=== PATIENT | female | born 1950 | race Two or more races ===

== ENCOUNTER 2017-07-12 07:39 | Emergency (ER) | payer SELFPAY ==
[2017-07-12] MEDS: IV NORMAL SALINE 1000ML BAG 1,000 ML IV (08:14)
[2017-07-12] MEDS: ACETAMINOPHEN 500 MG TABLET PO (08:16)
[2017-07-12 08:19] LABS: ADD MAN DIFF? NO
[2017-07-12 08:22] LABS: BASO # 0.1 x10^3/uL (0.0-0.2); BASO % 1 % (0-3); EOS # 0.1 x10^3/uL (0.0-0.7); EOS % 1 % (0-3); HEMATOCRIT 36.5 % (36.0-47.0); HEMOGLOBIN 12.5 g/dL (12.0-15.5); LYMPH # 1.5 x10^3/uL (1.0-4.8); LYMPH % 13 % (24-48); MEAN CORPUSCULAR HEMOGLOBIN 29 pg (25-35); MEAN CORPUSCULAR HGB CONC 34 g/dL (31-37); MEAN CORPUSCULAR VOLUME 85 fL (79-100); MONO # 0.7 x10^3/uL (0.0-1.1); MONO % 6 % (0-9); NEUT # 9.4 x10^3uL (1.8-7.7); NEUT % 80 % (31-73); PLATELET COUNT 260 x10^3/uL (140-400); RED BLOOD COUNT 4.28 x10^6/uL (3.50-5.40); RED CELL DISTRIBUTION WIDTH 13.4 % (11.5-14.5); WHITE BLOOD COUNT 11.8 x10^3/uL (4.0-11.0)
[2017-07-12 08:27] LABS: BILIRUBIN,URINE NEGATIVE (NEG); CLARITY,URINE CLEAR; COLOR,URINE YELLOW; GLUCOSE,URINE NEGATIVE (NEG); NITRITE,URINE POSITIVE (NEG); PH,URINE 5.5; PROTEIN,URINE 100 mg/dL (NEG-TRACE)
[2017-07-12 08:31] LABS: BACTERIA,URINE MANY /HPF (0-FEW); SQUAMOUS EPITHELIAL CELL,UR MANY /LPF
[2017-07-12 08:32] LABS: ANION GAP 10 (6-14); BLOOD UREA NITROGEN 18 mg/dL (7-20); BUN/CREATININE RATIO 14 (6-20); CARBON DIOXIDE 26 mmol/L (21-32); CHLORIDE 100 mmol/L (98-107); CREATININE 1.3 mg/dL (0.6-1.0); GFR 41.2; GLUCOSE 151 mg/dL (70-99); POTASSIUM 3.7 mmol/L (3.5-5.1); RBC,URINE >40 /HPF (0-2); SODIUM 136 mmol/L (136-145); WBC,URINE >40 /HPF (0-4)
[2017-07-12 08:39] LABS: ALBUMIN 3.8 g/dL (3.4-5.0); ALBUMIN/GLOBULIN RATIO 0.7 (1.0-1.7); ALK PHOS 136 U/L (46-116); ALT (SGPT) 39 U/L (14-59); AST (SGOT) 49 U/L (15-37); TOTAL BILIRUBIN 0.8 mg/dL (0.2-1.0)
[2017-07-12 08:41] LABS: LACTIC ACID 1.1 mmol/L (0.4-2.0)
[2017-07-12 08:56] LABS: TROPONINI < 0.017 ng/mL (0.000-0.055)
== END 2017-07-12 10:04 | disposition home or self-care (01) ==
LOC: ER 07:39
DX: N39.0 Urinary tract infection, site not specified (principal); E11.9 Type 2 diabetes mellitus without complications; I10 Essential (primary) hypertension; Z79.899 Other long term (current) drug therapy
CPT/HCPCS: 36415; 71045; 80053; 81001; 83605; 84145; 84484; 85025; 87040; 87086; 93005; 96365; 99285; J0690; J7030

== ENCOUNTER 2019-02-26 09:15 | Emergency (ER) | payer SELFPAY ==
[~2019-02-26] VITALS: Ht 152.4 cm; Wt 81.6 kg
[~2019-02-26 09:15] MED LIST: CEPH500T PO
[2019-02-26 09:55] VITALS: BP 168/77
[2019-02-26 10:38] LABS: CALCIUM 9.4 mg/dL (8.5-10.1); GFR 55.5; POTASSIUM 4.4 mmol/L (3.5-5.1)
[2019-02-26 10:44] LABS: ALBUMIN/GLOBULIN RATIO 0.6 (1.0-1.7); TOTAL BILIRUBIN 0.3 mg/dL (0.2-1.0); TOTAL PROTEIN 10.5 g/dL (6.4-8.2); URIC ACID 7.5 mg/dL (2.6-6.0)
--- NOTE | 2019-02-26 10:51 | RAD ---
FOOT LEFT 3V 02/26/2019 10:10 AM INDICATION: Great toe swelling COMPARISON: None available. TECHNIQUE: 3 views of the left foot are provided. FINDINGS/ IMPRESSION: There is no acute fracture or dislocation. Joint spaces are maintained. Bone mineralization is within normal limits. Minimal soft tissue swelling of the first digit without underlying osseous abnormality or mineralization within the soft tissues. There is no soft tissue gas or osseous erosion. No radiopaque foreign body. Posterior and plantar calcaneal enthesophytes are present. Electronically signed by: Petrona Hoskins MD (02/26/2019 10:48 AM) [id number]
[2019-02-26 11:40] LABS: BASO % 1 % (0-3); EOS # 0.4 x10^3/uL (0.0-0.7); EOS % 6 % (0-3); HEMATOCRIT 40.6 % (36.0-47.0); HEMOGLOBIN 13.6 g/dL (12.0-15.5); LYMPH # 3.3 x10^3/uL (1.0-4.8); LYMPH % 46 % (24-48); MEAN CORPUSCULAR HEMOGLOBIN 29 pg (25-35); MEAN CORPUSCULAR HGB CONC 34 g/dL (31-37); MEAN CORPUSCULAR VOLUME 87 fL (79-100); MONO # 0.3 x10^3/uL (0.0-1.1); MONO % 5 % (0-9); NEUT # 3.2 x10^3/uL (1.8-7.7); NEUT % 44 % (31-73); PLATELET COUNT 310 x10^3/uL (140-400); RED BLOOD COUNT 4.67 x10^6/uL (3.50-5.40); RED CELL DISTRIBUTION WIDTH 13.6 % (11.5-14.5); WHITE BLOOD COUNT 7.3 x10^3/uL (4.0-11.0)
[2019-02-26] MEDS ORDERED: COLCHICINE 0.6 MG TABLET PO ONE (13:15)
[2019-02-26] MEDS ORDERED: predniSONE 10 MG TABLET PO ONE (13:15)
[2019-02-26] MEDS ORDERED: HYDROcodone/APAP 5/325MG 1 TAB TABLET PO ONE (13:15)
--- NOTE | 2019-02-26 13:19 | PHYS DOC ---
Past Medical History Past Medical History: Diabetes-Type II, Hypertension Past Surgical History: No Surgical History Alcohol Use: None Drug Use: None Adult General Chief Complaint Chief Complaint: TOE PROBLEM HPI HPI Patient is a 68 year old female with history of diabetes type 2, hypertension, who presents to the ED today complaining of moderate pain to the left great toe intermittently for one week. Patient states the pain feels like fire around the great toe MTP joint. Patient states the pain is worse on weight bearing. Denies any injury. Denies anything relieving the pain. Review of Systems Review of Systems Constitutional: Denies fever or chills [] Musculoskeletal: Reports left great toe pain Integument: Denies rash or skin lesions [] Neurologic: Denies headache, focal weakness or sensory changes [] All other systems were reviewed and found to be within normal limits, except as documented in this note. Current Medications Current Medications Current Medications Medications (Trade) Dose Ordered Sig/Olena Start Time Stop Time Status Last Admin Dose Admin Acetaminophen/ Hydrocodone Bitart (Lortab 5/325) 1 tab 1X ONCE 02/26/19 13:15 02/26/19 13:16 DC Colchicine (Colcrys) 1.2 mg 1X ONCE 02/26/19 13:15 02/26/19 13:16 DC Prednisone (Prednisone) 50 mg 1X ONCE 02/26/19 13:15 02/26/19 13:16 DC Allergies Allergies Allergies Coded Allergies Type Severity Reaction Last Updated Verified No Known Drug Allergies 07/12/17 No Physical Exam Physical Exam Constitutional: Well developed, well nourished, no acute distress, non-toxic appearance. [] Back: No tenderness, no CVA tenderness. [] Extremities: Left great toe along the MTP joint is warm tender to touch and swollen. No redness to indicate infection. Full range of motion to the left foot and toes. +2 left pedal pulse. Symptoms suspicious of gout. Neurologic: Alert and oriented X 3, normal motor function, normal sensory function, no focal deficits noted. [] Psychologic: Affect normal, judgement normal, mood normal. [] Current Patient Data Vital Signs Vital Signs Date Time Temp Pulse Resp B/P (MAP) Pulse Ox O2 Delivery O2 Flow Rate FiO2 02/26/19 09:55 97.8 71 18 168/77 (107) 95 Room Air 97.8 Lab Values Laboratory Tests Test 02/26/19 10:20 02/26/19 11:20 Sodium Level 137 mmol/L (136-145) Potassium Level 4.4 mmol/L (3.5-5.1) Chloride Level 101 mmol/L (98-107) Carbon Dioxide Level 32 mmol/L (21-32) Anion Gap 4 (6-14) L Blood Urea Nitrogen 18 mg/dL (7-20) Creatinine 1.0 mg/dL (0.6-1.0) Estimated GFR (Cockcroft-Gault) 55.5 BUN/Creatinine Ratio 18 (6-20) Glucose Level 103 mg/dL (70-99) H Uric Acid 7.5 mg/dL (2.6-6.0) H Calcium Level 9.4 mg/dL (8.5-10.1) Total Bilirubin 0.3 mg/dL (0.2-1.0) Aspartate Amino Transferase (AST) 19 U/L (15-37) Alanine Aminotransferase (ALT) 17 U/L (14-59) Alkaline Phosphatase 130 U/L (46-116) H Total Protein 10.5 g/dL (6.4-8.2) H Albumin 4.0 g/dL (3.4-5.0) Albumin/Globulin Ratio 0.6 (1.0-1.7) L White Blood Count 7.3 x10^3/uL (4.0-11.0) Red Blood Count 4.67 x10^6/uL (3.50-5.40) Hemoglobin 13.6 g/dL (12.0-15.5) Hematocrit 40.6 % (36.0-47.0) Mean Corpuscular Volume 87 fL (79-100) Mean Corpuscular Hemoglobin 29 pg (25-35) Mean Corpuscular Hemoglobin Concent 34 g/dL (31-37) Red Cell Distribution Width 13.6 % (11.5-14.5) Platelet Count 310 x10^3/uL (140-400) Neutrophils (%) (Auto) 44 % (31-73) Lymphocytes (%) (Auto) 46 % (24-48) Monocytes (%) (Auto) 5 % (0-9) Eosinophils (%) (Auto) 6 % (0-3) H Basophils (%) (Auto) 1 % (0-3) Neutrophils # (Auto) 3.2 x10^3/uL (1.8-7.7) Lymphocytes # (Auto) 3.3 x10^3/uL (1.0-4.8) Monocytes # (Auto) 0.3 x10^3/uL (0.0-1.1) Eosinophils # (Auto) 0.4 x10^3/uL (0.0-0.7) Basophils # (Auto) 0.0 x10^3/uL (0.0-0.2) Laboratory Tests 02/26/19 11:20 Laboratory Tests 02/26/19 10:20 EKG EKG [] Radiology/Procedures Radiology/Procedures []PROCEDURE: FOOT LEFT 3V FOOT LEFT 3V 02/26/2019 10:10 AM INDICATION: Great toe swelling COMPARISON: None available. TECHNIQUE: 3 views of the left foot are provided. FINDINGS/ IMPRESSION: There is no acute fracture or dislocation. Joint spaces are maintained. Bone mineralization is within normal limits. Minimal soft tissue swelling of the first digit without underlying osseous abnormality or mineralization within the soft tissues. There is no soft tissue gas or osseous erosion. No radiopaque foreign body. Posterior and plantar calcaneal enthesophytes are present. Electronically signed by: Vandana Hoskins MD (02/26/2019 10:48 AM) [id number] DICTATED and SIGNED BY: VANDANA HOSKINS MD DATE: 02/26/19 1048 Course & Med Decision Making Course & Med Decision Making Pertinent Labs and Imaging studies reviewed. (See chart for details) This is a 68-year-old female patient presenting to the ED today with left great toe pain that began a week ago. Left foot x-rays are negative for any acute find ings. Uric acid 7.5, CMP with normal kidney function, wbc's normal. Patient likely has gout. Was given Colchine in the Ed and discharged with the same. F/u with PCP next week. Dragon Disclaimer Dragon Disclaimer This electronic medical record was generated, in whole or in part, using a voice recognition dictation system. Departure Departure Impression: Primary Impression: Gout Disposition: 01 HOME, SELF-CARE Condition: STABLE Referrals: NO PCP (PCP) follow up with your doctor next week. Patient Instructions: Gout, [id number] Additional Instructions: You were seen in the Ed and noted to have Gout. Take the medicine prescribed as ordered. Follow up with your doctor next week. Avoid eating red meats. Scripts Hydrocodone/Apap 5-325 (NORCO 5-325 TABLET) 1 Each Tablet 1 TAB PO Q6-8HRS PRN for PAIN, #20 TAB Prov: KARO MORSE H[employer] BENEFITS ASSISTANT 02/26/19 Colchicine (Colchicine) 0.6 Mg Tablet 1 TAB PO DAILY for gout pain, #7 TAB 0 Refills Prov: KARO MORSE APRN 02/26/19 Problem Qualifiers Primary Impression: Gout Gout site: foot Gout etiology: unspecified cause Chronicity: acute Laterality: left Qualified Codes: M10.9 - Gout, unspecified KARO MORSE APRN Feb 26, 2019 13:19
[2019-02-26] MEDS ORDERED: HYDR-3164 PO (13:24)
[2019-02-26] MEDS ORDERED: COLC0.6T42 PO (13:24)
== END 2019-02-26 13:28 | disposition home or self-care (01) ==
LOC: ER 09:15
DX: M10.9 Gout, unspecified (principal); M79.675 Pain in left toe(s); E11.9 Type 2 diabetes mellitus without complications; I10 Essential (primary) hypertension
CPT/HCPCS: 36415; 73630; 80053; 84550; 85025; 99285; J7512

== ENCOUNTER 2021-07-16 18:25 | Emergency (ER) | payer SELFPAY ==
[~2021-07-16] VITALS: Ht 154.9 cm; Wt 73.7 kg
[~2021-07-16 18:25] MED LIST changes: +CEPH-264 PO; +CEPH500C PO; +COLC0.6T45 PO; +HYDR-3164 PO; +HYDR15CR20 TP; +MUPI22OI2 TP
[2021-07-16 21:00] VITALS: BP 154/84
[2021-07-16] MEDS ORDERED: COLL226C TP (21:13)
[2021-07-16] MEDS ORDERED: PRED50TA PO (21:13)
--- NOTE | 2021-07-16 21:14 | PHYS DOC ---
Past Medical History Past Medical History: Diabetes-Type II, Hypertension Past Surgical History: No Surgical History Smoking Status: Never Smoker Alcohol Use: None Drug Use: None General Adult EDM: Chief Complaint: SKIN RASH/ABSCESS HPI: HPI: Patient is a 70 year old female who presents to the ED today complaining of a nonpruritic rash on her face and neck, symptoms began a couple days ago. Patient denies any new soaps, laundry detergents, new foods. Review of Systems: Review of Systems: Constitutional: Denies fever or chills. []] : Denies dysuria. [] Musculoskeletal: Denies back pain or joint pain. [] Integument: Reports rash on the face and neck Neurologic: Denies headache, focal weakness or sensory changes. [] Endocrine: Denies polyuria or polydipsia. [] Lymphatic: Denies swollen glands. [] Psychiatric: Denies depression or anxiety. [] Heart Score: C/O Chest Pain: N/A Risk Factors: Risk Factors: DM, Current or recent (<one month) smoker, HTN, HLP, family history of CAD, obesity. Risk Scores: Score 0 - 3: 2.5% MACE over next 6 weeks - Discharge Home Score 4 - 6: 20.3% MACE over next 6 weeks - Admit for Clinical Observation Score 7 - 10: 72.7% MACE over next 6 weeks - Early Invasive Strategies Current Medications: Current Medications Medications (Trade) Dose Ordered Sig/Olena Start Time Stop Time Status Last Admin Dose Admin Prednisone (Prednisone) 60 mg 1X ONCE 07/16/21 21:15 07/16/21 21:16 UNV Allergies: Allergies: Allergies Coded Allergies Type Severity Reaction Last Updated Verified No Known Drug Allergies 07/12/17 No Physical Exam: PE: Constitutional: Well developed, well nourished, no acute distress, non-toxic appearance. [] Skin:Very dry skin, moderate amount of erythematous rash consistent with eczema noted on patient's face, around the eyes, neck. Back: No tenderness, no CVA tenderness. [] Extremities: No tenderness, no cyanosis, no clubbing, ROM intact, no edema. [] Neurologic: Alert and oriented X 3, normal motor function, normal sensory function, no focal deficits noted. [] Psychologic: Affect normal, judgement normal, mood normal. [] EKG: EKG: [] Radiology/Procedures: Radiology/Procedures: [] Course & Med Decision Making: Course & Med Decision Making Pertinent Labs and Imaging studies reviewed. (See chart for details) This is a 70-year-old female patient presented to the ED today complaining of rash on her face and neck, symptoms began couple days ago, rash appears to be a bad case of eczema. Patient was given prescription for Eucerin cream and prednisone oral tablets for couple days. Follow-up with PCP next week Rodriguez Disclaimer: Rodriguez Disclaimer: This electronic medical record was generated, in whole or in part, using a voice recognition dictation system. Departure Departure Impression: Primary Impression: Eczema Qualified Codes: L30.9 - Dermatitis, unspecified Disposition: HOME / SELF CARE / HOMELESS Condition: STABLE Referrals: NO PCP (PCP) Follow-up with your doctor in 1 to 2 weeks Patient Instructions: Eczema Additional Instructions: You were seen for eczema. Use the prescribed medications as ordered. Follow-up with your doctor in 1 week Scripts Colloidal Oatmeal (Eucerin Eczema Relief) 226 Gm Cream..g. 1 CARLOS TP DAILY, #226 GM 0 Refills Prov: KARO MORSE APRN 07/16/21 Prednisone (PREDNISONE) 50 Mg Tablet 1 TAB PO DAILY, #7 TAB Prov: KARO MORSE APRN 07/16/21 KARO MORSE APRN July 16, 2021 21:13
[2021-07-16] MEDS ORDERED: predniSONE 20 MG TABLET PO ONE (21:15)
== END 2021-07-16 21:43 | disposition home or self-care (01) ==
LOC: ER 18:25
DX: L30.9 Dermatitis, unspecified (principal); E11.9 Type 2 diabetes mellitus without complications; I10 Essential (primary) hypertension
CPT/HCPCS: 99283; J7512